=== PATIENT | female | born 1940 | race Caucasian/White ===

== ENCOUNTER → 2023-12-19 09:15 | Outpatient (REF) | payer OTHER, SELFPAY | LOC: RAD 09:15 | PROVIDERS: ATTENDING PHYSICIAN Emergency Medicine | DX: M25.511 Pain in right shoulder (principal) | CPT/HCPCS: 73030 ==

== ENCOUNTER → 2024-05-28 15:03 | Outpatient (REF) | payer OTHER, SELFPAY ==
[2024-05-28 16:40] LABS: Urine Albumin Negative (Neg - Trace); Urine Bilirubin Negative (Negative); Urine Character Slightly Cloudy (Clear); Urine Color Yellow; Urine Glucose Negative (Negative); Urine Ketone Negative (Negative); Urine Leukocyte 2+ (Negative); Urine Nitrite Negative (Negative); Urine Occult Blood 4+ (Negative); Urine Urobilinogen Negative (Neg - 1+)
[2024-05-28 16:57] LABS: Urine Bacteria Moderate (Negative); Urine White Cell 70-80 /HPF (0-5)
== END ==
LOC: REG 15:03
PROVIDERS: ATTENDING PHYSICIAN Urology; FAMILY PHYSICIAN Emergency Medicine
DX: N39.0 Urinary tract infection, site not specified (principal)
CPT/HCPCS: 81003; 81015; 87086; 87088; 87186

== ENCOUNTER 2024-11-20 19:50 | Emergency (ER) | payer OTHER, SELFPAY ==
[2024-11-20 19:56] VITALS: BP 180/92
[2024-11-20 20:22] VITALS: BMI 31.9
[2024-11-20 20:31] VITALS: BP 144/56
[2024-11-20 20:45] LABS: % Basophils 0.5 % (0-2); % Immature Granulocytes 0.3 % (0-0.5); % Lymphocytes 31.2 % (20.5-51.1); % Monocytes 10.6 % (1.7-9.3); % Neutrophils 55.4 % (42.2-75.2); Absolute Basophils 0.1 10^3/uL (0-0.2); Absolute Eosinophils 0.2 10^3/uL (0-0.7); Absolute Lymphocytes 3.4 10^3/uL (1.2-3.4); Absolute Monocytes 1.1 10^3/uL (0.1-0.6); Hematocrit 36.3 % (37.0-47.0); Hemoglobin 12.1 g/dL (12.0-16.0); Mean Corp Hgb Conc. 33.3 g/dL (33.0-37.0); Mean Corpuscular Hgb 30.4 pg (27.0-31.0); Mean Corpuscular Volume 91.2 fL (81.0-99.0); Mean Platelet Volume 8.5 fL (7.4-10.4); Nucleated Red Blood Cells % 0 %; Platelet Count 409 10^3/uL (130-400); Red Blood Cell Count 3.98 10^6/uL (4.20-5.40); Red Cell Dist. Width 13.1 % (11.5-14.5); White Blood Cell Count 10.8 10^3/uL (4.8-10.8)
[2024-11-20 20:58] LABS: ALT (SGPT) 13 U/L (0-35); AST (SGOT) 21 U/L (14-36); Albumin 4.2 g/dl (3.5-5.0); Alkaline Phosphatase 120 U/L (38-126); Blood Urea Nitrogen 20 mg/dl (7-17); Calcium 9.6 mg/dl (8.4-10.2); Carbon Dioxide 28 mmol/L (22-30); Chloride 99 mmol/L (98-107); Estimated Creatinine Clearance 63 ml/min; Glucose 146 mg/dl (70-99); Potassium 4.1 mmol/L (3.5-5.1); Sodium 136 mmol/L (135-145); Total Protein 7.2 g/dl (6.3-8.2); eGFR > 60.00
[2024-11-20 21:00] VITALS: BP 134/56
--- NOTE | 2024-11-20 21:13 | ED.GENMED ---
History of Present Illness
<JAILENE Ferrera - Last Filed: 11/21/24 02:33>
General
Chief Complaint: Flank Pain
Source: patient
Exam Limitations: none
Time Seen by Provider: 11/20/24 20:42
Nursing documentation reviewed up to this point in time: agreed with except (Patient complains of pain more over the rib not the flank )
History of Present Illness
History of Present Illness:
Patient is an 84-year-old female who presents to the ER complaining of pain to the right rib area. She reports this morning she noticed pain to right posterior rib lateral and anterior region. She states that she tried change positions to get
comfortable and sometimes it does help. She has no associated shortness of breath. She reports he gets worse with movement. She denies any recent injury fever chills. She has a mild cough.
She denies any recent illness fever chills. She denies any rash. Denies any trauma. She denies any abdominal pain nausea vomiting. Denies any urinary frequency urgency or dysuria.
Past History
<JAILENE Ferrera - Last Filed: 11/21/24 02:33>
Past History
ED Past Medical History: Hypercholesterolemia and Other (Osteoporosis)
ED Past Surgical History: Appendectomy, Cholecystectomy and
Social History
Tobacco: Former smoker
Alcohol: None
Personal:
Living: with family
Family History
Family History: Other (Lung cancer, multiple myeloma)
Review of Systems
<JAILENE Ferrera - Last Filed: 11/21/24 02:33>
Review of Systems
Allergies reviewed?: Yes
All Other Systems: ROS reviewed and negative except as documented in HPI and ROS
Constitutional: Reports no symptoms; Denies fever, fatigue or chills
Respiratory: Reports other (right rib pain )
Cardiac: Reports no symptoms
ABD/GI: Reports no symptoms; Denies abdominal pain, nausea or vomiting
: Reports no symptoms
Musculoskeletal: Reports no symptoms
Skin: Reports no symptoms
Neurological: Reports no symptoms
Psychiatric: Reports no symptoms
Phy Exam
<JAILENE Ferrera - Last Filed: 11/21/24 02:33>
General Physical Exam
General Presentation: no apparent distress
General age: appears stated age
General Skin: warm and dry
General Habitus: elderly
General Mental: alert
General Hydration: appears well hydrated
Cardiovascular Exam
Cardiovascular Exam: regular rate/rhythm, no murmur and normal peripheral pulses
Pulmonary Exam
Pulmonary Exam: lungs clear, no respiratory distress and other (Mild tenderness to right posterior rib area no rash)
Course
<JAILENE Ferrera - Last Filed: 11/21/24 02:33>
Orders/Labs/Results
Orders:
Orders
11/20/24 20:32
Complete Blood Count/With Diff Urgent
Comprehensive Metabolic Panel Urgent
11/20/24 21:13
Urinalysis Reflex To Culture Urgent
Date Specimen was Collected: 11/20/24
Time Specimen was Collected: 20:32
Urine Microscopic Reflex Cult Urgent
Urine Culture Urgent
STACY Source: U
Specimen Description:
Date Specimen was Collected: 11/20/24
Time Specimen was Collected: 20:32
11/20/24 21:49
CT Chest PE Study Urgent
Comment:
Reason For Exam: right rib pain
11/20/24 23:39
Ketorolac [Toradol] 15 mg IV NOW STA
Lidocaine [Lidocaine 4% Patch] 1 patch TOPICAL NOW STA
Apply Lidocaine patch(s) to:: right rib
Abnormal Lab Results
11/20/24 11/20/24
20:32 21:13
RBC 3.98 L 10^6/uL
(4.20-5.40)
Hct 36.3 L %
(37.0-47.0)
Plt Count 409 H 10^3/uL
(130-400)
Absolute Monos (auto) 1.1 H 10^3/uL
(0.1-0.6)
Monocytes % 10.6 H %
(1.7-9.3)
BUN 20 H mg/dl
(7-17)
Glucose 146 H mg/dl
(70-99)
Leukocyte Esterase Rfl 3+ A
(Negative)
Urine WBC (Reflex) 26-30 A /HPF
(0-5)
Urine Bacteria (Reflex) Few A
(Negative)
11/20/24 20:32
11/20/24 20:32
Vital Signs
Initial and Last Documented VS:
Initial Vital Signs
Temp Pulse Resp BP Pulse Ox
98.2 F 83 16 180/92 100
11/20/24 19:56 11/20/24 19:56 11/20/24 19:56 11/20/24 19:56 11/20/24 19:56
Last Documented Vital Signs
Temp Pulse Resp BP Pulse Ox
98.2 F 83 16 137/69 96
11/20/24 19:56 11/20/24 19:56 11/20/24 19:56 11/21/24 00:00 11/21/24 00:15
[employer]uty [employer] Director consulted with Physician
[employer]uty [employer] Director consulted with physician?: Yes
Name of Physician Consulted: Macey
<Felix Choudhury, DO - Last Filed: 11/20/24 21:46>
Orders/Labs/Results
Orders:
Orders
11/20/24 20:32
Complete Blood Count/With Diff Urgent
Comprehensive Metabolic Panel Urgent
11/20/24 21:13
Urinalysis Reflex To Culture Urgent
Date Specimen was Collected: 11/20/24
Time Specimen was Collected: 20:32
Urine Microscopic Reflex Cult Urgent
Urine Culture Urgent
STACY Source: U
Specimen Description:
Date Specimen was Collected: 11/20/24
Time Specimen was Collected: 20:32
11/20/24 21:49
CT Chest PE Study Urgent
Comment:
Reason For Exam: right rib pain
11/20/24 23:39
Ketorolac [Toradol] 15 mg IV NOW STA
Lidocaine [Lidocaine 4% Patch] 1 patch TOPICAL NOW STA
Apply Lidocaine patch(s) to:: right rib
Abnormal Lab Results
11/20/24 11/20/24
20:32 21:13
RBC 3.98 L 10^6/uL
(4.20-5.40)
Hct 36.3 L %
(37.0-47.0)
Plt Count 409 H 10^3/uL
(130-400)
Absolute Monos (auto) 1.1 H 10^3/uL
(0.1-0.6)
Monocytes % 10.6 H %
(1.7-9.3)
BUN 20 H mg/dl
(7-17)
Glucose 146 H mg/dl
(70-99)
Leukocyte Esterase Rfl 3+ A
(Negative)
Urine WBC (Reflex) 26-30 A /HPF
(0-5)
Urine Bacteria (Reflex) Few A
(Negative)
11/20/24 20:32
11/20/24 20:32
Vital Signs
Initial and Last Documented VS:
Initial Vital Signs
Temp Pulse Resp BP Pulse Ox
98.2 F 83 16 180/92 100
11/20/24 19:56 11/20/24 19:56 11/20/24 19:56 11/20/24 19:56 11/20/24 19:56
Last Documented Vital Signs
Temp Pulse Resp BP Pulse Ox
98.2 F 83 16 137/69 96
11/20/24 19:56 11/20/24 19:56 11/20/24 19:56 11/21/24 00:00 11/21/24 00:15
<JAILENE Ferrera - Last Filed: 11/21/24 02:33>
MDM/Problems Addressed
Differential Diagnosis Includes:
Not limited to muscular pain less likely pneumonia less likely PE shingles considered however no rash
MDM/Problems Addressed:
Symptoms are consistent with muscular pain patient complains of pain to the rib area no obvious injury patient has no flank or CVA tenderness she has no UTI symptoms. It is worse with movement improved with Toradol here. No associated shortness of
breath no fever. On exam patient is awake alert no acute distress she is afebrile with a normal white count stable hemoglobin normal renal function. Case discussed with ED physician who evaluated patient PE study was done and negative. Urinalysis
reviewed 26 white blood cells however greater than 30 squamous and patient has no UTI symptoms will send for culture
Patient stable for discharge home will have patient take small dose of ibuprofen alternating with Tylenol just for the next day or 2 with close outpatient follow-up family doctor. Discussed ice and heat
<JAILENE Ferrera - Last Filed: 11/21/24 02:33>
*Radiology
Radiology exam reviewed: radiology read reviewed
*Pulse Oximetry
Patient hypoxic: no
*Critical Care Note
Total Time (30-74mins, 75-104mins- exclusive of procedures): Not Applicable
ED Attending Note
<JAILENE Ferrera - Last Filed: 11/21/24 02:33>
-
Portions of this chart may have been created with voice recognition software.� Occasional wrong word or��sound alike� substitutions may have occurred due to the inherent limitations of voice recognition software.
<Felix Choudhury, - Last Filed: 11/20/24 21:46>
ED Attending Note
Patient seen and examined by attending physician: Yes
I performed the substantive portion of visit, reviewed & personally made and approve the management plan that is documented in note by myself or BHUPENDRA.: Yes
ED Attending Note:
Seen with [employer] examined independently slightly reproducible atraumatic right lateral chest wall pain no rash is short of breath
Discharge Plan
Departure
Patient Disposition: Home (Routine Discharge)
Date of Disposition: 11/21/24
Time of Disposition: 00:37
Patient with high blood pressure during this ER visit?: Yes
Condition: Fair
Covid-19: Not Applicable
Discharge Problem:
muscle and bone pain
Instructions: Muscle, joint, and bone pain - Discharge instructions, BLOOD PRESSURE
Prescriptions:
No Action
multivitamin [Hoq-Ercmry-Ncank] 1 EACH tablet
1 tab PO DAILY
ondansetron HCl 4 MG tablet
4 mg PO TIDPRN PRN (Reason: nausea and vomiting) Qty: 15 0RF
cefuroxime axetil 250 MG tablet
250 mg PO BID Qty: 20 0RF
oxycodone-acetaminophen 5 MG/325 MG tablet
1 tab PO Q4HPRN PRN (Reason: pain) Qty: 20 0RF
Referrals:
Joaquina Wilkes MD [Family Provider] -
Activity Restrictions/Additional Instructions:
As discussed you may take small dose of ibuprofen 400 mg every 8 hours with food for the next 1 to 2 days and may alternate with Tylenol. You may try warm moist heat to affected area. Follow-up with your family doctor in the next 2 days for
reevaluation of symptoms and return if any worsening of symptoms
Interventions
Interventions:
*Risk Screen - Suicide Last Done: 11/20/24 20:22
*General Assessment Last Done: 11/20/24 19:56
*Neglect/Abuse Screening Last Done: 11/20/24 19:56
*ED- Fall Risk Assessment Last Done: 11/21/24 00:49
*ED COVID-19 Vaccine History Last Done: 11/20/24 19:56
*Nursing Disposition Last Done: 11/21/24 00:49
YZ-Sedytt-Axancebaii Assessment Last Done: 11/20/24 20:22
ED-Female Genitourinary Assessment Last Done: 11/20/24 20:22
Discharge Date and Time
Discharge Date/Time: 11/21/24 00:50
Print Language: YI
[2024-11-20 22:00] VITALS: BP 136/67
[2024-11-20 22:53] LABS: Urine Albumin Negative (Neg - Trace); Urine Bilirubin Negative (Negative); Urine Character Clear (Clear); Urine Color Yellow; Urine Glucose Negative (Negative); Urine Ketone Negative (Negative); Urine Leukocyte 3+ (Negative); Urine Nitrite Negative (Negative); Urine Occult Blood Negative (Negative); Urine Specific Gravity 1.015 (<1.030); Urine Urobilinogen Negative (Neg - 1+)
[2024-11-20 22:58] LABS: Urine Bacteria Few (Negative); Urine Red Blood Cell 0-2 /HPF (0-2); Urine Squamous Cell >30 /LPF (Few); Urine White Cell 26-30 /HPF (0-5)
[2024-11-20 23:00] VITALS: BP 131/77
[2024-11-20] MEDS: TORADOL 15 MG IV (23:44)
[2024-11-20] MEDS: LIDOCAINE 4% PATCH 1 PATCH TOPICAL (23:44)
[2024-11-21] VITALS: BP 137/69
== END 2024-11-21 00:50 | disposition home or self-care (01) ==
LOC: EMR 19:50
PROVIDERS: Emergency Medicine; EMERGENCY PHYSICIAN Emergency Medicine; FAMILY PHYSICIAN Emergency Medicine
DX: R10.9 Unspecified abdominal pain (principal); E78.00 Pure hypercholesterolemia, unspecified; M81.0 Age-related osteoporosis without current pathological fracture; I25.10 Atherosclerotic heart disease of native coronary artery without angina pectoris; Z80.1 Family history of malignant neoplasm of trachea, bronchus and lung; Z87.891 Personal history of nicotine dependence; Z90.49 Acquired absence of other specified parts of digestive tract
CPT/HCPCS: 99284; 96374; 71275; 80053; 81003; 81015; 85025; 87086; Q9967